=== PATIENT | male | born 1945 | race Caucasian/White ===

== ENCOUNTER → 2024-01-30 14:49 | Outpatient (CLI) | payer MEDICARE, SELFPAY ==
--- NOTE | 2024-01-30 14:50 | DI.US.S_ITS ---
PROCEDURE: US ABDOMEN LIMITED INDICATIONS: EVALUATE LEFT INGUINAL CANAL TECHNIQUE: Real-time focused scanning was performed of the inguinal region, with image documentation. COMPARISON: None. FINDINGS: Scanning is performed of the left inguinal canal. No hernias or masses are seen. No fluid collections or enlarged lymph nodes are seen. IMPRESSION: Negative left inguinal canal, without hernias or masses. Dictated by: Enrico Duenas M.D. on 02/02/2024 at 12:17 Approved by: Enrico Duenas M.D. on 02/02/2024 at 12:18
== END ==
PROVIDERS: PCP Student in an Organized Health Care Education/Training Program; Referring Provider Student in an Organized Health Care Education/Training Program; Visit Provider Student in an Organized Health Care Education/Training Program
DX: R10.32 Left lower quadrant pain (principal)
CPT/HCPCS: 76705